=== PATIENT | male | born 1990 | race Two or more races ===

== ENCOUNTER 2017-09-25 12:23 | Inpatient (IN) | payer OTHER ==
[~2017-09-25] VITALS: Ht 185.4 cm; Wt 93.9 kg
[2017-09-25 12:58] VITALS: BP 120/77
[2017-09-25 14:10] LABS: HEMATOCRIT 47.4 % (42.0-52.0); HEMOGLOBIN 16.2 G/DL (14.2-18.0); MEAN CORPUSCULAR VOLUME 91 FL (80-99); MONOCYTES % (AUTO) 7.5 % (1.0-10.0); NEUTROPHILS % (AUTO) 59.5 % (45.0-75.0); PLATELET COUNT 166 K/UL (150-450); RED BLOOD COUNT 5.19 M/UL (4.70-6.10); RED CELL DISTRIBUTION WIDTH 10.5 % (11.6-14.8)
[2017-09-25 14:23] LABS: ANION GAP 8 mmol/L (5-15); BLOOD UREA NITROGEN 15 mg/dL (7-18); CALCIUM 8.9 MG/DL (8.5-10.1); CARBON DIOXIDE 27 MMOL/L (21-32); CHLORIDE 104 MMOL/L (98-107); CREATININE 0.7 MG/DL (0.55-1.30); POTASSIUM 3.8 MMOL/L (3.5-5.1); SODIUM 139 MMOL/L (136-145)
[2017-09-25 14:45] LABS: ALANINE AMINOTRANSFERASE 20 U/L (12-78); ALBUMIN/GLOBULIN RATIO 1.2 (1.0-2.7); ALKALINE PHOSPHATASE 110 U/L (46-116); ASPARTATE AMINO TRANSFERASE 10 U/L (15-37); BILIRUBIN,TOTAL 0.3 MG/DL (0.2-1.0); CKMB 0.6 NG/ML (0.0-3.6); CREATINE KINASE 80 U/L (26-308)
--- NOTE | 2017-09-25 15:11 | Emergency Room Report ---
History of Present Illness General Chief Complaint: Abnormal Labs Source: Patient Present Illness HPI This patient was sent in from an outpatient clinic for concern of active tuberculosis. The patient had been seen in clinic and underwent testing and had a positive interferon gold test. The patient himself has no complaints. The patient denies cough or congestion. The patient denies night sweats or bloody sputum production. However, the outpatient clinic reports that there is some findings on a chest x-ray. The patient did come to the [facility] from [facility] 3 months ago and this in an endemic TB area. Allergies: Coded Allergies: No Known Allergies (Unverified , 09/25/17) Patient History Past Medical History: none, other - Postive TB test. Social History: Denies: smoking, alcohol use, drug use Reviewed Nursing Documentation: PMH: Agreed; PSxH: Agreed Nursing Documentation-PMH Past Medical History: No History, Except For Review of Systems All Other Systems: negative except mentioned in HPI Physical Exam Vital Signs Date Time Temp Pulse Resp B/P (MAP) Pulse Ox O2 Delivery O2 Flow Rate FiO2 09/25/17 12:28 98.0 64 18 120/77 98 Room Air 98.1 Sp02 EP Interpretation: reviewed, normal General Appearance: no apparent distress, alert, GCS 15, non-toxic Head: normocephalic, atraumatic Eyes: bilateral eye normal inspection, bilateral eye PERRL ENT: hearing grossly normal, normal pharynx, no angioedema, normal voice Neck: full range of motion, supple/symm/no masses Respiratory: chest non-tender, lungs clear, normal breath sounds, speaking full sentences Cardiovascular #1: regular rate, rhythm, no edema Gastrointestinal: normal bowel sounds, non tender, soft, non-distended, no guarding, no rebound Rectal: deferred Musculoskeletal: back normal, gait/station normal, normal range of motion, non- tender Neurologic: alert, oriented x3, responsive, motor strength/tone normal, sensory intact, speech normal Psychiatric: judgement/insight normal, memory normal, mood/affect normal, no suicidal/homicidal ideation Skin: normal color, no rash, warm/dry, well hydrated Medical Decision Making Diagnostic Impression: Primary Impression: Tuberculosis ER Course This patient has a positive quantitative from cold tuberculosis test. There is concern for active tuberculosis. He is admitted for isolation and determination of active tuberculosis. He was stable here in the emergency department and admitted for further evaluation and treatment. Laboratory Tests Test 09/25/17 13:40 White Blood Count 7.0 K/UL (4.8-10.8) Red Blood Count 5.19 M/UL (4.70-6.10) Hemoglobin 16.2 G/DL (14.2-18.0) Hematocrit 47.4 % (42.0-52.0) Mean Corpuscular Volume 91 FL (80-99) Mean Corpuscular Hemoglobin 31.2 PG (27.0-31.0) H Mean Corpuscular Hemoglobin Concent 34.2 G/DL (32.0-36.0) Red Cell Distribution Width 10.5 % (11.6-14.8) L Platelet Count 166 K/UL (150-450) Mean Platelet Volume 8.5 FL (6.5-10.1) Neutrophils (%) (Auto) 59.5 % (45.0-75.0) Lymphocytes (%) (Auto) 31.0 % (20.0-45.0) Monocytes (%) (Auto) 7.5 % (1.0-10.0) Eosinophils (%) (Auto) 1.0 % (0.0-3.0) Basophils (%) (Auto) 1.0 % (0.0-2.0) Sodium Level 139 MMOL/L (136-145) Potassium Level 3.8 MMOL/L (3.5-5.1) Chloride Level 104 MMOL/L (98-107) Carbon Dioxide Level 27 MMOL/L (21-32) Anion Gap 8 mmol/L (5-15) Blood Urea Nitrogen 15 mg/dL (7-18) Creatinine 0.7 MG/DL (0.55-1.30) Estimate Glomerular Filtration Rate > 60 mL/min (>60) Glucose Level 109 MG/DL (74-106) H Calcium Level 8.9 MG/DL (8.5-10.1) Total Bilirubin 0.3 MG/DL (0.2-1.0) Aspartate Amino Transferase (AST) 10 U/L (15-37) L Alanine Aminotransferase (ALT) 20 U/L (12-78) Alkaline Phosphatase 110 U/L (46-116) Total Creatine Kinase 80 U/L (26-308) Creatine Kinase MB 0.6 NG/ML (0.0-3.6) Creatine Kinase MB Relative Index 0.7 Total Protein 7.4 G/DL (6.4-8.2) Albumin 4.0 G/DL (3.4-5.0) Globulin 3.4 g/dL Albumin/Globulin Ratio 1.2 (1.0-2.7) EKG Diagnostic Results Rate: normal Rhythm: NSR ST Segments: other - Qwaves Rhythm Strip Diag. Results EP Interpretation: yes Rate: 60's Rhythm: NSR, no PVC's, no ectopy Chest X-Ray Diagnostic Results Chest X-Ray Diagnostic Results : Chest X-Ray Ordered: Yes # of Views/Limited/Complete: 1 View Indication: Other EP Interpretation: Yes Interpretation: no consolidation, no effusion, no pneumothorax, no acute cardiopulmonary disease Impression: No acute disease Electronically Signed by: Franky Last Vital Signs Date Time Temp Pulse Resp B/P (MAP) Pulse Ox O2 Delivery O2 Flow Rate FiO2 09/25/17 12:58 98.1 18 120/77 98 Room Air 98.1 09/25/17 12:28 64 Disposition: ADMITTED INPATIENT Condition: Stable Scripts No Active Prescriptions or Reported Meds Referrals: [facility]ERR[facility] (PCP) Eugenie Narayan DO Sep 25, 2017 15:11
[2017-09-25 16:30] VITALS: BP 136/91
--- NOTE | 2017-09-25 17:07 | Diagnostic Imaging Report ---
Indication: Shortness of breath Technique: One view of the chest Comparison: none Findings: Lungs and pleural spaces are clear. The heart size is normal Impression: Negative
[2017-09-25] MEDS ORDERED: Acetaminophen 500mg (ES) tab ORAL PRN (17:30)
[2017-09-25] MEDS ORDERED: guaiFENesin 100mg/5ml Liq ud ORAL PRN (18:45)
--- NOTE | 2017-09-25 18:45 | Consultation ---
Consult Note Assessment/Plan DICT # [id number] Anjel Coronel MD Sep 25, 2017 18:45
[2017-09-25 19:19] VITALS: BP 121/69
[2017-09-25] MEDS ORDERED: Sodium Chloride 3% 4ml Nebul Soln INH ONE (19:30)
--- NOTE | 2017-09-25 19:45 | Consultation ---
DATE OF CONSULTATION: 09/25/2017 PULMONARY CONSULTATION REFERRING PHYSICIAN: Dr. Cyndee Contreras. REASON FOR CONSULTATION: Possible TB. HISTORY OF PRESENT ILLNESS: The patient is a 27-year-old male here from [facility] without any significant past medical history, who recently established care at the [facility]. He has been having cough for the past couple weeks with some left-sided vague chest discomfort. He had a positive QuantiFERON Gold, so was advised to come to the ER for further evaluation. He also had a chest x-ray, accessible on clinic, which showed some left basilar atelectasis. Chest x-ray here is normal. He has been afebrile. Vital signs are stable. He denies any fevers, chills, night sweats, headache, dizziness, nausea or vomiting. He does have some abdominal dysfunction and dyspepsia for which he has recently been started on Zantac and referred for GI evaluation. Since arriving at [place], he has been afebrile. Vital signs stable. Saturating well on room air. Laboratories were unremarkable. He has been admitted to TB isolation for further evaluation and management. Chest x-ray here done and reviewed by myself was unremarkable. PAST MEDICAL HISTORY: None. PAST SURGICAL HISTORY: None. ALLERGIES: No known drug allergies. MEDICATIONS: [id number], medications none. Current medications none. 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 No tobacco, alcohol, or drug use. Not currently sexually active. FAMILY HISTORY: Noncontributory. REVIEW OF SYSTEMS: Negative other than history of present illness. PHYSICAL EXAMINATION: VITAL SIGNS: Temperature 97.9, pulse 72, blood pressure 138/87, respiratory rate 18, and saturating 98% on room air. GENERAL: He is a well-developed, well-nourished male in no acute distress. Awake, alert, and oriented x3. HEENT: Normocephalic and atraumatic. Oropharynx is clear with moist mucous membranes. NECK: Supple without lymphadenopathy or jugular venous distention. CHEST: Clear to auscultation bilaterally without wheezing, rales, or rhonchi. HEART: Regular rate and rhythm. ABDOMEN: Soft and nontender. EXTREMITIES: No cyanosis, clubbing, or edema. ANCILLARY DATA: Sodium 139, potassium 3.8, chloride 104, bicarb 27, BUN 15, creatinine 0.7, glucose 109, and calcium 8.9. Total bilirubin 0.3. AST 10, ALT 20, alkaline phosphatase 110. CK 80, CK-MB 0.7. Albumin 4. Globulin 3.4, ratio 1.2. White count 7, hemoglobin 16.2, and platelet count 166. Chest x-ray, within normal limits. ASSESSMENT: The patient is a 27-year-old male who recently relocated here from [facility] referred for evaluation of a positive QuantiFERON Gold. There is nothing to suggest active pulmonary tuberculosis, but the patient has been admitted to airborne isolation to rule out MTB, which is appropriate given he is coming from an endemic area with positive QuantiFERON Gold and recent respiratory symptoms. He also has some epigastric discomfort and likely gastroesophageal reflux disease for which he has recently been started on H2 courtney and referred to gastrointestinal as an outpatient. PROBLEM LIST: 1. 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 2. Atypical chest pain and shortness of breath. 3. Epigastric discomfort. 4. GERD or gastritis. TREATMENT PLAN: 1. Rule out mycobacterium TB with AFB x3 and MTB PCR. 2. Continue respiratory isolation until ruled out. 3. We will check a CT chest, abdomen and pelvis with and without contrast to both evaluate for venous thromboembolism, given his atypical chest pain as well as for any intra-abdominal pathology given his persistent abdominal symptoms. 4. Supportive care. 5. As needed antitussive therapy. 6. We will start PPI. 7. Check occult blood. 8. GI evaluation is pending. 9. DVT prophylaxis, SCDs. Dr. Contreras, thank you for allowing me to assist in the care of your patient. If I may be of any assistance in the future, please do not hesitate to ask. Anjel Coronel M.D. DR: EDWIN JOB#: [id number] CC:
[2017-09-25 23:42] VITALS: BP 115/78
[2017-09-26 03:53] VITALS: BP 122/77
[2017-09-26] MEDS ORDERED: Sodium Chloride 3% 4ml Nebul Soln INH ONE (06:15)
[2017-09-26] MEDS ORDERED: NaCl 3% 500ml 250 ML IVPB ONE ×2 (06:15)
[2017-09-26 07:22] LABS: ALANINE AMINOTRANSFERASE 21 U/L (12-78); ALBUMIN/GLOBULIN RATIO 1.1 (1.0-2.7); ALKALINE PHOSPHATASE 109 U/L (46-116); ANION GAP 11 mmol/L (5-15); ASPARTATE AMINO TRANSFERASE 13 U/L (15-37); BILIRUBIN,TOTAL 0.5 MG/DL (0.2-1.0); BLOOD UREA NITROGEN 13 mg/dL (7-18); CARBON DIOXIDE 23 MMOL/L (21-32); CHLORIDE 104 MMOL/L (98-107); CREATININE 0.8 MG/DL (0.55-1.30); POTASSIUM 3.7 MMOL/L (3.5-5.1); SODIUM 138 MMOL/L (136-145)
[2017-09-26 07:29] LABS: BASOPHILS % (AUTO) 0.9 % (0.0-2.0); EOSINOPHILS % (AUTO) 1.5 % (0.0-3.0); HEMATOCRIT 48.2 % (42.0-52.0); HEMOGLOBIN 17.3 G/DL (14.2-18.0); LYMPHOCYTES % (AUTO) 34.5 % (20.0-45.0); MEAN CORPUSCULAR VOLUME 91 FL (80-99); MONOCYTES % (AUTO) 8.2 % (1.0-10.0); NEUTROPHILS % (AUTO) 54.9 % (45.0-75.0); PLATELET COUNT 183 K/UL (150-450); RED CELL DISTRIBUTION WIDTH 10.4 % (11.6-14.8); WHITE BLOOD COUNT 8.6 K/UL (4.8-10.8)
[2017-09-26] MEDS ORDERED: Isovue-370 150ml vial INJ PRN (08:30)
[2017-09-26] MEDS ORDERED: Isovue-300 100ml vial INJ PRN (08:30)
[2017-09-26 09:00] VITALS: BP 112/58
--- NOTE | 2017-09-26 13:54 | Diagnostic Imaging Report ---
Clinical Indication: Chest and abdominal pain, atypical chest pain Technique: Patient ingested oral contrast IV administration nonionic contrast. Venous phase spiral acquisition obtained through the abdomen and pelvis. Multiplanar reconstructions were generated. Total dose length product 1748.8 mGycm. CTDIvol(s) 26.39,13.88 mGy. Dose reduction achieved using automated exposure control Comparison: none Findings: The appendix is normal. No evidence of diverticulosis or diverticulitis. No small bowel distention or small bowel wall thickening. Contrast has traversed most of the length of the small bowel, does not quite reach the terminal ileum. No free or loculated intraperitoneal air or fluid is evident. Distal esophagus, stomach, duodenum are unremarkable. There is a tiny fat-containing umbilical hernia The liver, gallbladder, bile ducts, pancreas, spleen, adrenals are all unremarkable. There is a 4 mm calculus in the right renal lower pole collecting system. The kidneys are otherwise unremarkable. No ureteral calculi, hydronephrosis, hydroureter. No retroperitoneal or mesenteric mass or adenopathy. No pelvic mass or adenopathy. The bones are unremarkable Impression: No acute abnormality Positive for 4 mm nonobstructive right lower pole intrarenal calculus Incidental finding tiny fat-containing umbilical hernia The CT scanner at [facility] is accredited by the [employer] and the scans are performed using protocols designed to limit radiation exposure to as low as reasonably achievable to attain images of sufficient resolution adequate for diagnostic evaluation.
--- NOTE | 2017-09-26 13:56 | Diagnostic Imaging Report ---
ndication: Atypical chest pain Technique: IV administration nonionic contrast. Spiral acquisitions obtained from the lung bases to the lung apices. Multiplanar and 3-D reconstructions were generated. Total dose length product 1748.8 mGycm. CTDIvol(s) 26.39,13.88 mGy. Dose reduction achieved using automated exposure control Comparison: none Findings: There is some image degradation due to respiratory motion artifact. Pulmonary arteries are well opacified. No intraluminal filling defects or other findings to suggest acute pulmonary embolus demonstrated. Normal caliber pulmonary arteries. Normal heart size. No evidence of right ventricular dilatation. There is some posterior dependent atelectatic changes. There is apparent groundglass opacities throughout the lungs, although suspect that this is due to motion artifact rather than real. No definite infiltrates, effusions, congestion, masses, or nodules. No mediastinal or hilar mass or adenopathy. Normal heart size. No pericardial effusion. No axillary or chest wall mass or adenopathy. Included portions of the thyroid are unremarkable The bones demonstrate mild upper thoracic scoliotic deformity. Impression: Somewhat limited exam, due to motion artifact No definite evidence of acute pulmonary embolus or other acute thoracic vascular pathology Minimal posterior dependent pulmonary atelectatic changes. No definite acute parenchymal process, although motion artifact precludes complete exclusion of such Mild upper thoracic scoliosis The CT scanner at [facility] is accredited by the [employer] and the scans are performed using protocols designed to limit radiation exposure to as low as reasonably achievable to attain images of sufficient resolution adequate for diagnostic evaluation.
--- NOTE | 2017-09-26 14:04 | Cardiology Report ---
APPROVED REPORT EKG Measurement Heart [id number] Normal sinus rhythm Possible Inferior infarct, age undetermined Abnormal ECG
--- NOTE | 2017-09-26 17:30 | Consultation ---
DATE OF CONSULTATION: 09/26/2017 INFECTIOUS DISEASE CONSULTATION CONSULTING PHYSICIAN: Getachew Montez M.D. PRIMARY ATTENDING PHYSICIAN: Cyndee Contreras M.D. REASON FOR CONSULT: Tuberculosis. HISTORY OF PRESENT ILLNESS: The patient is a 27-year-old male admitted yesterday after referral from an outside clinic. He had recently positive QuantiFERON Gold TB test. Denies any fever, chills, night sweats, headache, nausea, or vomiting. No weight loss. He is from [facility] and recently came to [facility] three months ago. He has occasional cough and cold symptoms every 2 to 3 months. PAST MEDICAL HISTORY: Insignificant. MEDICATIONS: Protonix, guaifenesin, and Tylenol. ALLERGIES: No known drug allergy. SOCIAL HISTORY: . Denies alcohol, drug abuse, or smoking. He has one child. He states that he had a HIV test that was negative around three months ago. REVIEW OF SYSTEMS: As per history of present illness. PHYSICAL EXAMINATION: VITAL SIGNS: Temperature 97.2, pulse 60, and blood pressure 122/77. GENERAL APPEARANCE: No acute distress. Seems well developed. HEAD AND NECK: [place] conjunctiva. HEART: S1 and S2 regular. LUNGS: Clear. ABDOMEN: Soft. Some mild tenderness in the left lower quadrant. EXTREMITIES: No edema. NEUROLOGIC: Awake, alert, and oriented. No focal symptoms. LABORATORY AND DIAGNOSTIC DATA: WBC 8.6, hemoglobin 17.3, hematocrit 48.2, and platelets is 183,000. Sodium 138, potassium 3.7, chloride 104, bicarb 23, BUN 13, and creatinine 0.8. AST 13, ALT 21, and alkaline phosphatase 109. His stool occult blood was negative. CT scan of the abdomen and chest are pending. IMPRESSION: Latent tuberculosis. We will try to rule out active tuberculosis. We will follow up the CT scan of the chest and abdomen and pelvis. If it is negative, we will consult the patient regarding taken INH. If positive, we will treat for tuberculosis. At the end of my exam, I thank for Dr. Contreras for involving me in the care of this patient. Getachew Montez M.D. DR: SAQIB JOB#: [id number] CC:
--- NOTE | 2017-09-26 18:05 | Pulmonology Progress Note ---
Assessment/Plan Assessment/Plan ASSESSMENT: The patient is a 27-year-old male who recently relocated here from [place] referred for evaluation of a positive QuantiFERON Gold. There is nothing to suggest active pulmonary tuberculosis, but the patient has been admitted to airborne isolation to rule out MTB, which is appropriate given he is coming from an endemic area with positive QuantiFERON Gold and recent respiratory symptoms. He also has some epigastric discomfort and likely gastroesophageal reflux disease for which he has recently been started on H2 courtney and referred to gastrointestinal as an outpatient. PROBLEM LIST: 1. 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 No radiographic e/o MTB 2. Atypical chest pain and shortness of breath, CT-A neg for PE 3. Epigastric discomfort. 4. GERD or gastritis. TREATMENT PLAN: 1. CT CAP reviewed, no e/o TB 2. D/C respiratory isolation per ID 3. Consideration for treatment of LTBI 4. Supportive care. 5. As needed antitussive therapy. 6. Continue PPI. 7. GI evaluation 8. DVT prophylaxis, SCDs. Subjective Allergies: Coded Allergies: No Known Allergies (Unverified , 09/25/17) Subjective Doing well AFVSS, stable on RA No cough, no congestion, no SOB, no CP, abd pain better Objective Last 24 Hour Vital Signs Date Time Temp Pulse Resp B/P (MAP) Pulse Ox O2 Delivery O2 Flow Rate FiO2 09/26/17 08:05 60 16 Room Air 21 09/26/17 07:50 58 16 100 Room Air 21 09/26/17 03:53 97.2 60 20 122/77 99 Room Air 97.2 09/25/17 23:42 97.0 66 20 115/78 98 Room Air 97.0 09/25/17 19:19 97.7 64 20 121/69 99 Room Air 97.7 Intake and Output 09/25/17 09/26/17 19:00 07:00 Intake Total 240 ml Balance 240 ml Intake Oral 240 ml # Voids 2 # Bowel Movements 1 1 General Appearance: WD/WN, no acute distress HEENT: normocephalic, atraumatic, anicteric, mucous membranes moist Respiratory/Chest: chest wall non-tender, lungs clear, normal breath sounds Cardiovascular: normal peripheral pulses, normal rate, regular rhythm Abdomen: normal bowel sounds, soft, non tender, no organomegaly, non distended , no mass Extremities: no cyanosis, no clubbing, no edema Laboratory Tests 09/25/17 22:45: Stool Occult Blood Negative 09/26/17 05:10: White Blood Count 8.6, Red Blood Count 5.30, Hemoglobin 17.3, Hematocrit 48.2, Mean Corpuscular Volume 91, Mean Corpuscular Hemoglobin 32.7H, Mean Corpuscular Hemoglobin Concent 35.9, Red Cell Distribution Width 10.4L, Platelet Count 183, Mean Platelet Volume 9.1, Neutrophils (%) (Auto) 54.9, Lymphocytes (%) (Auto) 34.5, Monocytes (%) (Auto) 8.2, Eosinophils (%) (Auto) 1.5, Basophils (%) (Auto ) 0.9, Sodium Level 138, Potassium Level 3.7, Chloride Level 104, Carbon Dioxide Level 23, Anion Gap 11, Blood Urea Nitrogen 13, Creatinine 0.8, Estimat Glomerular Filtration Rate > 60, Glucose Level 95, Calcium Level 9.0, Total Bilirubin 0.5, Aspartate Amino Transf (AST/SGOT) 13L, Alanine Aminotransferase ( ALT/SGPT) 21, Alkaline Phosphatase 109, Total Protein 7.6, Albumin 4.0, Globulin 3.6, Albumin/Globulin Ratio 1.1 Current Medications Medications (Trade) Dose Ordered Sig/Warren Route PRN Reason Start Time Stop Time Status Last Admin Dose Admin Acetaminophen (Tylenol) 500 mg Q4H PRN ORAL Mild Pain/Temp > 100.5 09/25/17 17:30 10/25/17 17:29 Guaifenesin (Robitussin) 100 mg Q4H PRN ORAL For Cough 09/25/17 18:45 10/25/17 18:44 Iopamidol (Isovue-300 100ml) 100 ml NOW PRN INJ Radiology Procedure 09/26/17 08:30 09/28/17 08:29 Iopamidol (Isovue-370 150ml) 150 ml NOW PRN INJ Radiology Procedure 09/26/17 08:30 09/28/17 08:29 Pantoprazole (Protonix) 40 mg DAILY ORAL 09/26/17 09:00 10/26/17 08:59 09/26/17 12:49 Anjel Coronel MD Sep 26, 2017 18:05
[2017-09-26 21:00] VITALS: BP 112/69
--- NOTE | 2017-09-27 04:45 | History and Physical Report ---
DATE OF ADMISSION: 09/25/2017 HISTORY OF PRESENT ILLNESS: The patient is originally from [facility], who has been admitted for active tuberculosis. The patient went to clinic one week ago and was found to have positive TB test and is admitted for isolation. The patient is also complaining of mild cough, and shortness of breath for one week and the patient has a history of . The last time he was in [place] was three years ago, he moved to [facility]. 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 The patient denies hemoptysis. Denies weight loss. Denies night sweats. The patient had a positive QuantiFERON Gold test at outpatient clinic. PAST MEDICAL HISTORY: None other than GERD. PAST SURGICAL HISTORY: None. MEDICATIONS: None. FAMILY HISTORY: Noncontributory. SOCIAL HISTORY: Denies active smoking, alcohol, or illicit drug use. The patient is from [facility]. REVIEW OF SYSTEMS: HEENT: Denies headaches. RESPIRATORY: He reports shortness of breath for one day and mild cough for one week. CARDIOVASCULAR: Denies chest pain. GASTROINTESTINAL: Denies nausea or vomiting. He does have abdominal pain for one day, mostly on the left side. EXTREMITIES: Denies pain in the lower extremities. CENTRAL NERVOUS SYSTEM: No change in vision or speech pattern. PHYSICAL EXAMINATION: VITAL SIGNS: Temperature 97.2, pulse 78, and blood pressure 122/70. HEENT: PERRLA. NECK: Supple. No lymphadenopathy. CHEST: Clear to auscultation. GASTROINTESTINAL: Soft and nontender. No organomegaly. EXTREMITIES: No edema. Moves all four extremities. Reflexes are equal on both sides. No edema. NEUROLOGIC: Cranial nerves II through XII are intact. LABORATORY DATA: WBC of 7, hemoglobin 16.2, and platelets of 166,000. Sodium 139, potassium 3.8, BUN of 15, creatinine 0.7, and glucose of 109. ASSESSMENT AND PLAN: Active tuberculosis. He is on isolation. Dr. Coronel as well as Dr. Montez and Dr. Masters were consulted for fluid management as well as for management of the tuberculosis. The patient is on isolation. AFB is ordered and further diagnostic tests will be also reviewed by Dr. Coronel as well as Dr. Getachew Montez. Ali Wagner Contreras DR: ALINA JOB#: [id number] CC:
--- NOTE | 2017-09-27 06:58 | General Progress Note ---
Assessment/Plan Problem List: (1) Tuberculosis ICD Codes: A15.9 - Respiratory tuberculosis unspecified SNOMED: [id number], [id number] Status: progressing Assessment/Plan tb treatment per dr evangelista and id on isolation Subjective Gastrointestinal/Abdominal: Reports: abdominal pain Allergies: Coded Allergies: No Known Allergies (Unverified , 09/25/17) Objective Last 24 Hour Vital Signs Date Time Temp Pulse Resp B/P (MAP) Pulse Ox O2 Delivery O2 Flow Rate FiO2 09/26/17 21:00 97.4 66 20 112/69 98 Room Air 97.4 09/26/17 09:00 97.3 72 20 112/58 98 Room Air 97.3 09/26/17 08:05 60 16 Room Air 21 09/26/17 07:50 58 16 100 Room Air 21 Intake and Output 09/26/17 09/27/17 19:00 07:00 Intake Total 140 ml Balance 140 ml Intake Oral 140 ml # Voids 4 3 Laboratory Tests 09/27/17 05:10: White Blood Count [Pending], Red Blood Count [Pending], Hemoglobin [Pending], Hematocrit [Pending], Mean Corpuscular Volume [Pending], Mean Corpuscular Hemoglobin [Pending], Mean Corpuscular Hemoglobin Concent [Pending], Red Cell Distribution Width [Pending], Platelet Count [Pending], Mean Platelet Volume [ Pending], Neutrophils (%) (Auto) [Pending], Lymphocytes (%) (Auto) [Pending], Monocytes (%) (Auto) [Pending], Eosinophils (%) (Auto) [Pending], Basophils (%) (Auto) [Pending], Sodium Level [Pending], Potassium Level [Pending], Chloride Level [Pending], Carbon Dioxide Level [Pending], Blood Urea Nitrogen [Pending], Creatinine [Pending], Estimat Glomerular Filtration Rate [Pending], Glucose Level [Pending], Calcium Level [Pending], Total Bilirubin [Pending], Aspartate Amino Transf (AST/SGOT) [Pending], Alanine Aminotransferase (ALT/SGPT) [Pending] , Alkaline Phosphatase [Pending], Total Protein [Pending], Albumin [Pending], Globulin [Pending] Height (Feet): 6 Height (Inches): 1.00 Weight (Pounds): 180 Cyndee Contreras MD Sep 27, 2017 06:58
[2017-09-27 07:16] LABS: ALANINE AMINOTRANSFERASE 19 U/L (12-78); ALBUMIN 3.9 G/DL (3.4-5.0); ALBUMIN/GLOBULIN RATIO 1.1 (1.0-2.7); ALKALINE PHOSPHATASE 121 U/L (46-116); ANION GAP 9 mmol/L (5-15); ASPARTATE AMINO TRANSFERASE 12 U/L (15-37); BILIRUBIN,TOTAL 0.4 MG/DL (0.2-1.0); BLOOD UREA NITROGEN 10 mg/dL (7-18); CALCIUM 8.6 MG/DL (8.5-10.1); CARBON DIOXIDE 26 MMOL/L (21-32); CHLORIDE 104 MMOL/L (98-107); CREATININE 0.9 MG/DL (0.55-1.30); POTASSIUM 3.6 MMOL/L (3.5-5.1); SODIUM 139 MMOL/L (136-145)
[2017-09-27 07:39] LABS: BASOPHILS % (AUTO) 0.9 % (0.0-2.0); EOSINOPHILS % (AUTO) 1.8 % (0.0-3.0); HEMATOCRIT 48.9 % (42.0-52.0); HEMOGLOBIN 17.1 G/DL (14.2-18.0); LYMPHOCYTES % (AUTO) 33.7 % (20.0-45.0); MEAN CORPUSCULAR VOLUME 91 FL (80-99); MONOCYTES % (AUTO) 6.9 % (1.0-10.0); NEUTROPHILS % (AUTO) 56.7 % (45.0-75.0); PLATELET COUNT 190 K/UL (150-450); RED BLOOD COUNT 5.34 M/UL (4.70-6.10); RED CELL DISTRIBUTION WIDTH 10.4 % (11.6-14.8); WHITE BLOOD COUNT 8.1 K/UL (4.8-10.8)
[2017-09-27 08:00] VITALS: BP 110/57
--- NOTE | 2017-09-27 11:44 | Pulmonology Progress Note ---
Assessment/Plan Assessment/Plan ASSESSMENT: The patient is a 27-year-old male who recently relocated here from [place] referred for evaluation of a positive QuantiFERON Gold. There is nothing to suggest active pulmonary tuberculosis, but the patient has been admitted to airborne isolation to rule out MTB, which is appropriate given he is coming from an endemic area with positive QuantiFERON Gold and recent respiratory symptoms. He also has some epigastric discomfort and likely gastroesophageal reflux disease for which he has recently been started on H2 courtney and referred to gastrointestinal as an outpatient. PROBLEM LIST: 1. 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 No radiographic e/o MTB 2. Atypical chest pain and shortness of breath, CT-A neg for PE 3. Epigastric discomfort. 4. GERD or gastritis. TREATMENT PLAN: 1. CT CAP reviewed, no e/o TB 2. F/U MTB PCR 3. Per ID can be off respiratory isolation 4. Consideration for treatment of LTBI 5. Supportive care. 6. As needed antitussive therapy. 7. Continue PPI. 8. Should have an outpatient GI eval 9. DVT prophylaxis, SCDs. Subjective Allergies: Coded Allergies: No Known Allergies (Unverified , 09/25/17) Subjective AFVSS, stable on RA No cough, no congestion, no SOB, no CP, no abd pain Objective Last 24 Hour Vital Signs Date Time Temp Pulse Resp B/P (MAP) Pulse Ox O2 Delivery O2 Flow Rate FiO2 09/27/17 08:00 97.8 65 20 110/57 99 Room Air 97.8 09/26/17 21:00 97.4 66 20 112/69 98 Room Air 97.4 Intake and Output 09/26/17 09/27/17 19:00 07:00 Intake Total 140 ml Balance 140 ml Intake Oral 140 ml # Voids 4 3 General Appearance: WD/WN, no acute distress HEENT: normocephalic, atraumatic, anicteric, mucous membranes moist Respiratory/Chest: chest wall non-tender, lungs clear, normal breath sounds, no respiratory distress, no accessory muscle use Cardiovascular: normal peripheral pulses, normal rate, regular rhythm Abdomen: normal bowel sounds, soft, non tender, no organomegaly, non distended Extremities: no cyanosis, no clubbing, no edema Laboratory Tests 09/27/17 05:10: White Blood Count 8.1, Red Blood Count 5.34, Hemoglobin 17.1, Hematocrit 48.9, Mean Corpuscular Volume 91, Mean Corpuscular Hemoglobin 32.0H, Mean Corpuscular Hemoglobin Concent 35.0, Red Cell Distribution Width 10.4L, Platelet Count 190, Mean Platelet Volume 8.2, Neutrophils (%) (Auto) 56.7, Lymphocytes (%) (Auto) 33.7, Monocytes (%) (Auto) 6.9, Eosinophils (%) (Auto) 1.8, Basophils (%) (Auto ) 0.9, Sodium Level 139, Potassium Level 3.6, Chloride Level 104, Carbon Dioxide Level 26, Anion Gap 9, Blood Urea Nitrogen 10, Creatinine 0.9, Estimat Glomerular Filtration Rate > 60, Glucose Level 108H, Calcium Level 8.6, Total Bilirubin 0.4, Aspartate Amino Transf (AST/SGOT) 12L, Alanine Aminotransferase ( ALT/SGPT) 19, Alkaline Phosphatase 121H, Total Protein 7.4, Albumin 3.9, Globulin 3.5, Albumin/Globulin Ratio 1.1 Current Medications Medications (Trade) Dose Ordered Sig/Warren Route PRN Reason Start Time Stop Time Status Last Admin Dose Admin Acetaminophen (Tylenol) 500 mg Q4H PRN ORAL Mild Pain/Temp > 100.5 09/25/17 17:30 10/25/17 17:29 Guaifenesin (Robitussin) 100 mg Q4H PRN ORAL For Cough 09/25/17 18:45 10/25/17 18:44 Iopamidol (Isovue-300 100ml) 100 ml NOW PRN INJ Radiology Procedure 09/26/17 08:30 09/28/17 08:29 Iopamidol (Isovue-370 150ml) 150 ml NOW PRN INJ Radiology Procedure 09/26/17 08:30 09/28/17 08:29 Pantoprazole (Protonix) 40 mg DAILY ORAL 09/26/17 09:00 10/26/17 08:59 09/27/17 08:44 Anjel Coronel MD Sep 27, 2017 11:44
--- NOTE | 2017-09-27 13:43 | Infectious Diseases Prog Note ---
Assessment/Plan Assessment/Plan A; Positive TB test Latent TB P: Discontinue respiratory isolation Case was d/w patient about INH prophylaxis or waiting for symptoms development & RX Subjective ROS Limited/Unobtainable: No Constitutional: Reports: no symptoms Cardiovascular: Reports: no symptoms Gastrointestinal/Abdominal: Reports: other - mild pain Genitourinary: Reports: no symptoms Allergies: Coded Allergies: No Known Allergies (Unverified , 09/25/17) Objective Vital Signs Last 24 Hour Vital Signs Date Time Temp Pulse Resp B/P (MAP) Pulse Ox O2 Delivery O2 Flow Rate FiO2 09/27/17 08:00 97.8 65 20 110/57 99 Room Air 97.8 09/26/17 21:00 97.4 66 20 112/69 98 Room Air 97.4 Height (Feet): 6 Height (Inches): 1.00 Weight (Pounds): 207 HEENT: mucous membranes moist Respiratory/Chest: lungs clear Cardiovascular: normal rate Abdomen: soft, non tender Extremities: no edema Neurologic/Psychiatric: alert, oriented x 3, responsive Microbiology Date/Time Source Procedure Growth Status 09/26/17 09:55 Sputum AFB Specimen Processing Tissue - Final Resulted 09/26/17 09:55 Sputum Acid Fast Bacilli Smear - Final Resulted 09/26/17 09:55 Sputum Acid Fast Bacilli Culture Pending Resulted 09/25/17 13:30 Sputum AFB Specimen Processing Tissue - Final Resulted 09/25/17 13:30 Sputum Acid Fast Bacilli Smear - Final Resulted 09/25/17 13:30 Sputum Acid Fast Bacilli Culture Pending Resulted Laboratory Tests Test 09/27/17 05:10 White Blood Count 8.1 K/UL (4.8-10.8) Red Blood Count 5.34 M/UL (4.70-6.10) Hemoglobin 17.1 G/DL (14.2-18.0) Hematocrit 48.9 % (42.0-52.0) Mean Corpuscular Volume 91 FL (80-99) Mean Corpuscular Hemoglobin 32.0 PG (27.0-31.0) H Mean Corpuscular Hemoglobin Concent 35.0 G/DL (32.0-36.0) Red Cell Distribution Width 10.4 % (11.6-14.8) L Platelet Count 190 K/UL (150-450) Mean Platelet Volume 8.2 FL (6.5-10.1) Neutrophils (%) (Auto) 56.7 % (45.0-75.0) Lymphocytes (%) (Auto) 33.7 % (20.0-45.0) Monocytes (%) (Auto) 6.9 % (1.0-10.0) Eosinophils (%) (Auto) 1.8 % (0.0-3.0) Basophils (%) (Auto) 0.9 % (0.0-2.0) Sodium Level 139 MMOL/L (136-145) Potassium Level 3.6 MMOL/L (3.5-5.1) Chloride Level 104 MMOL/L (98-107) Carbon Dioxide Level 26 MMOL/L (21-32) Anion Gap 9 mmol/L (5-15) Blood Urea Nitrogen 10 mg/dL (7-18) Creatinine 0.9 MG/DL (0.55-1.30) Estimat Glomerular Filtration Rate > 60 mL/min (>60) Glucose Level 108 MG/DL (74-106) H Calcium Level 8.6 MG/DL (8.5-10.1) Total Bilirubin 0.4 MG/DL (0.2-1.0) Aspartate Amino Transf (AST/SGOT) 12 U/L (15-37) L Alanine Aminotransferase (ALT/SGPT) 19 U/L (12-78) Alkaline Phosphatase 121 U/L (46-116) H Total Protein 7.4 G/DL (6.4-8.2) Albumin 3.9 G/DL (3.4-5.0) Globulin 3.5 g/dL Albumin/Globulin Ratio 1.1 (1.0-2.7) Current Medications Medications (Trade) Dose Ordered Sig/Warren Route PRN Reason Start Time Stop Time Status Last Admin Dose Admin Acetaminophen (Tylenol) 500 mg Q4H PRN ORAL Mild Pain/Temp > 100.5 09/25/17 17:30 10/25/17 17:29 Guaifenesin (Robitussin) 100 mg Q4H PRN ORAL For Cough 09/25/17 18:45 10/25/17 18:44 Iopamidol (Isovue-300 100ml) 100 ml NOW PRN INJ Radiology Procedure 09/26/17 08:30 09/28/17 08:29 Iopamidol (Isovue-370 150ml) 150 ml NOW PRN INJ Radiology Procedure 09/26/17 08:30 09/28/17 08:29 Pantoprazole (Protonix) 40 mg DAILY ORAL 09/26/17 09:00 10/26/17 08:59 09/27/17 08:44 Getachew Montez MD Sep 27, 2017 13:43
[2017-09-27 19:13] VITALS: BP 117/74
[2017-09-28 00:35] VITALS: BP 126/68
[2017-09-28 08:05] LABS: BASOPHILS % (AUTO) 0.9 % (0.0-2.0); HEMATOCRIT 49.5 % (42.0-52.0); LYMPHOCYTES % (AUTO) 31.7 % (20.0-45.0); MEAN CORPUSCULAR VOLUME 92 FL (80-99); MONOCYTES % (AUTO) 9.5 % (1.0-10.0); PLATELET COUNT 183 K/UL (150-450); RED BLOOD COUNT 5.41 M/UL (4.70-6.10); RED CELL DISTRIBUTION WIDTH 10.5 % (11.6-14.8); WHITE BLOOD COUNT 7.3 K/UL (4.8-10.8)
[2017-09-28 08:20] LABS: ALANINE AMINOTRANSFERASE 24 U/L (12-78); ALBUMIN/GLOBULIN RATIO 1.1 (1.0-2.7); ALKALINE PHOSPHATASE 112 U/L (46-116); ANION GAP 6 mmol/L (5-15); ASPARTATE AMINO TRANSFERASE 16 U/L (15-37); BILIRUBIN,TOTAL 0.6 MG/DL (0.2-1.0); BLOOD UREA NITROGEN 15 mg/dL (7-18); CALCIUM 9.1 MG/DL (8.5-10.1); CARBON DIOXIDE 29 MMOL/L (21-32); CHLORIDE 103 MMOL/L (98-107); CREATININE 0.9 MG/DL (0.55-1.30); POTASSIUM 4.3 MMOL/L (3.5-5.1); SODIUM 137 MMOL/L (136-145)
[2017-09-28 09:00] VITALS: BP 125/56
--- NOTE | 2017-09-28 12:38 | Infectious Diseases Prog Note ---
Assessment/Plan Assessment/Plan A; Positive TB test Latent TB AFB smear X 2: negative P: Waiting for public health department response for discharge Case was d/w patient about INH prophylaxis or waiting for symptoms development & RX Subjective ROS Limited/Unobtainable: No Constitutional: Reports: no symptoms Respiratory: Reports: no symptoms Cardiovascular: Reports: no symptoms Gastrointestinal/Abdominal: Reports: no symptoms Genitourinary: Reports: no symptoms Allergies: Coded Allergies: No Known Allergies (Unverified , 09/25/17) Objective Vital Signs Last 24 Hour Vital Signs Date Time Temp Pulse Resp B/P (MAP) Pulse Ox O2 Delivery O2 Flow Rate FiO2 09/28/17 09:00 97.3 76 20 125/56 97 97.3 09/28/17 00:35 97.7 60 20 126/68 96 Room Air 97.7 09/27/17 19:13 97.5 65 20 117/74 98 Room Air 97.5 Height (Feet): 6 Height (Inches): 1.00 Weight (Pounds): 207 General Appearance: no acute distress HEENT: mucous membranes moist Respiratory/Chest: lungs clear Cardiovascular: normal peripheral pulses, normal rate Abdomen: soft, non tender Extremities: no edema Neurologic/Psychiatric: alert, oriented x 3, responsive Microbiology Date/Time Source Procedure Growth Status 09/26/17 09:55 Sputum AFB Specimen Processing Tissue - Final Resulted 09/26/17 09:55 Sputum Acid Fast Bacilli Smear - Final Resulted 09/26/17 09:55 Sputum Acid Fast Bacilli Culture Pending Resulted 09/25/17 13:30 Sputum AFB Specimen Processing Tissue - Final Resulted 09/25/17 13:30 Sputum Acid Fast Bacilli Smear - Final Resulted 09/25/17 13:30 Sputum Acid Fast Bacilli Culture Pending Resulted Laboratory Tests Test 09/28/17 06:20 White Blood Count 7.3 K/UL (4.8-10.8) Red Blood Count 5.41 M/UL (4.70-6.10) Hemoglobin 17.0 G/DL (14.2-18.0) Hematocrit 49.5 % (42.0-52.0) Mean Corpuscular Volume 92 FL (80-99) Mean Corpuscular Hemoglobin 31.4 PG (27.0-31.0) H Mean Corpuscular Hemoglobin Concent 34.3 G/DL (32.0-36.0) Red Cell Distribution Width 10.5 % (11.6-14.8) L Platelet Count 183 K/UL (150-450) Mean Platelet Volume 8.8 FL (6.5-10.1) Neutrophils (%) (Auto) 56.0 % (45.0-75.0) Lymphocytes (%) (Auto) 31.7 % (20.0-45.0) Monocytes (%) (Auto) 9.5 % (1.0-10.0) Eosinophils (%) (Auto) 2.0 % (0.0-3.0) Basophils (%) (Auto) 0.9 % (0.0-2.0) Sodium Level 137 MMOL/L (136-145) Potassium Level 4.3 MMOL/L (3.5-5.1) Chloride Level 103 MMOL/L (98-107) Carbon Dioxide Level 29 MMOL/L (21-32) Anion Gap 6 mmol/L (5-15) Blood Urea Nitrogen 15 mg/dL (7-18) Creatinine 0.9 MG/DL (0.55-1.30) Estimat Glomerular Filtration Rate > 60 mL/min (>60) Glucose Level 102 MG/DL (74-106) Calcium Level 9.1 MG/DL (8.5-10.1) Total Bilirubin 0.6 MG/DL (0.2-1.0) Aspartate Amino Transf (AST/SGOT) 16 U/L (15-37) Alanine Aminotransferase (ALT/SGPT) 24 U/L (12-78) Alkaline Phosphatase 112 U/L (46-116) Total Protein 7.6 G/DL (6.4-8.2) Albumin 4.0 G/DL (3.4-5.0) Globulin 3.6 g/dL Albumin/Globulin Ratio 1.1 (1.0-2.7) Current Medications Medications (Trade) Dose Ordered Sig/Warren Route PRN Reason Start Time Stop Time Status Last Admin Dose Admin Acetaminophen (Tylenol) 500 mg Q4H PRN ORAL Mild Pain/Temp > 100.5 09/25/17 17:30 10/25/17 17:29 Guaifenesin (Robitussin) 100 mg Q4H PRN ORAL For Cough 09/25/17 18:45 10/25/17 18:44 Pantoprazole (Protonix) 40 mg DAILY ORAL 09/26/17 09:00 10/26/17 08:59 09/28/17 10:02 Getachew Montez MD Sep 28, 2017 12:38
--- NOTE | 2017-09-28 13:55 | General Progress Note ---
Assessment/Plan Problem List: (1) Tuberculosis ICD Codes: A15.9 - Respiratory tuberculosis unspecified SNOMED: [id number], [id number] Status: stable, progressing Assessment/Plan o2 pulm tx prn abx cbc bmp am Subjective Constitutional: Reports: weakness Allergies: Coded Allergies: No Known Allergies (Unverified , 09/25/17) All Systems: reviewed and negative except above Subjective calm in bed Objective Last 24 Hour Vital Signs Date Time Temp Pulse Resp B/P (MAP) Pulse Ox O2 Delivery O2 Flow Rate FiO2 09/28/17 09:00 97.3 76 20 125/56 97 97.3 09/28/17 00:35 97.7 60 20 126/68 96 Room Air 97.7 09/27/17 19:13 97.5 65 20 117/74 98 Room Air 97.5 Intake and Output 09/27/17 09/28/17 19:00 07:00 Intake Total 960 ml 400 ml Balance 960 ml 400 ml Intake Oral 960 ml 400 ml # Voids 2 Laboratory Tests 09/28/17 06:20: White Blood Count 7.3, Red Blood Count 5.41, Hemoglobin 17.0, Hematocrit 49.5, Mean Corpuscular Volume 92, Mean Corpuscular Hemoglobin 31.4H, Mean Corpuscular Hemoglobin Concent 34.3, Red Cell Distribution Width 10.5L, Platelet Count 183, Mean Platelet Volume 8.8, Neutrophils (%) (Auto) 56.0, Lymphocytes (%) (Auto) 31.7, Monocytes (%) (Auto) 9.5, Eosinophils (%) (Auto) 2.0, Basophils (%) (Auto ) 0.9, Sodium Level 137, Potassium Level 4.3, Chloride Level 103, Carbon Dioxide Level 29, Anion Gap 6, Blood Urea Nitrogen 15, Creatinine 0.9, Estimat Glomerular Filtration Rate > 60, Glucose Level 102, Calcium Level 9.1, Total Bilirubin 0.6, Aspartate Amino Transf (AST/SGOT) 16, Alanine Aminotransferase ( ALT/SGPT) 24, Alkaline Phosphatase 112, Total Protein 7.6, Albumin 4.0, Globulin 3.6, Albumin/Globulin Ratio 1.1 Height (Feet): 6 Height (Inches): 1.00 Weight (Pounds): 207 General Appearance: alert EENT: normal ENT inspection Neck: normal alignment Cardiovascular: normal peripheral pulses, normal rate, regular rhythm Respiratory/Chest: chest wall non-tender, decreased breath sounds Abdomen: normal bowel sounds, non tender, soft Extremities: normal inspection Edema: no edema noted Arm (L), no edema noted Arm (R), no edema noted Leg (L), no edema noted Leg (R), no edema noted Pedal (L), no edema noted Pedal (R), no edema noted Generalized Neurologic: responsive, motor weakness Skin: normal pigmentation, warm/dry Alfredito Pérez DO Sep 28, 2017 13:55
--- NOTE | 2017-09-28 16:10 | Pulmonology Progress Note ---
Assessment/Plan Assessment/Plan ASSESSMENT: The patient is a 27-year-old male who recently relocated here from [place] referred for evaluation of a positive QuantiFERON Gold. There is nothing to suggest active pulmonary tuberculosis, but the patient has been admitted to airborne isolation to rule out MTB, which is appropriate given he is coming from an endemic area with positive QuantiFERON Gold and recent respiratory symptoms. He also has some epigastric discomfort and likely gastroesophageal reflux disease for which he has recently been started on H2 courtney and referred to gastrointestinal as an outpatient. PROBLEM LIST: 1. 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 No radiographic e/o MTB and AFB smear neg x 3 2. Atypical chest pain and shortness of breath, CT-A neg for PE 3. Epigastric discomfort. 4. GERD or gastritis. TREATMENT PLAN: 1. CT CAP reviewed, no e/o TB 2. F/U MTB PCR, smear negativ x 3 3. Per ID can be off respiratory isolation - AWAITING PUBLIC HEALTH DEPARTMENT CLEARANCE 4. Consideration for treatment of LTBI, ID discussing with patient 5. Supportive care. 6. As needed antitussive therapy. 7. Continue PPI. 8. Should have an outpatient GI eval 9. DVT prophylaxis, SCDs. Subjective Allergies: Coded Allergies: No Known Allergies (Unverified , 09/25/17) Subjective Smear neg x 3, awaiting clearance from department of health AFVSS, stable on RA No cough, no congestion, no SOB, no CP, no abd pain Objective Last 24 Hour Vital Signs Date Time Temp Pulse Resp B/P (MAP) Pulse Ox O2 Delivery O2 Flow Rate FiO2 09/28/17 09:00 97.3 76 20 125/56 97 97.3 09/28/17 00:35 97.7 60 20 126/68 96 Room Air 97.7 09/27/17 19:13 97.5 65 20 117/74 98 Room Air 97.5 Intake and Output 09/27/17 09/28/17 19:00 07:00 Intake Total 960 ml 400 ml Balance 960 ml 400 ml Intake Oral 960 ml 400 ml # Voids 2 General Appearance: WD/WN, no acute distress HEENT: normocephalic, atraumatic, anicteric, mucous membranes moist Respiratory/Chest: chest wall non-tender, lungs clear, normal breath sounds, no respiratory distress, no accessory muscle use Cardiovascular: normal peripheral pulses, normal rate, regular rhythm Abdomen: normal bowel sounds, soft, non tender, no organomegaly, non distended , no mass Extremities: no cyanosis, no clubbing, no edema Microbiology Date/Time Source Procedure Growth Status 09/27/17 15:00 Sputum AFB Specimen Processing Tissue - Final Resulted 09/27/17 15:00 Sputum Acid Fast Bacilli Smear - Final Resulted 09/27/17 15:00 Sputum Acid Fast Bacilli Culture Pending Resulted 09/26/17 09:55 Sputum AFB Specimen Processing Tissue - Final Resulted 09/26/17 09:55 Sputum Acid Fast Bacilli Smear - Final Resulted 09/26/17 09:55 Sputum Acid Fast Bacilli Culture Pending Resulted Laboratory Tests 09/28/17 06:20: White Blood Count 7.3, Red Blood Count 5.41, Hemoglobin 17.0, Hematocrit 49.5, Mean Corpuscular Volume 92, Mean Corpuscular Hemoglobin 31.4H, Mean Corpuscular Hemoglobin Concent 34.3, Red Cell Distribution Width 10.5L, Platelet Count 183, Mean Platelet Volume 8.8, Neutrophils (%) (Auto) 56.0, Lymphocytes (%) (Auto) 31.7, Monocytes (%) (Auto) 9.5, Eosinophils (%) (Auto) 2.0, Basophils (%) (Auto ) 0.9, Sodium Level 137, Potassium Level 4.3, Chloride Level 103, Carbon Dioxide Level 29, Anion Gap 6, Blood Urea Nitrogen 15, Creatinine 0.9, Estimat Glomerular Filtration Rate > 60, Glucose Level 102, Calcium Level 9.1, Total Bilirubin 0.6, Aspartate Amino Transf (AST/SGOT) 16, Alanine Aminotransferase ( ALT/SGPT) 24, Alkaline Phosphatase 112, Total Protein 7.6, Albumin 4.0, Globulin 3.6, Albumin/Globulin Ratio 1.1 Current Medications Medications (Trade) Dose Ordered Sig/Warren Route PRN Reason Start Time Stop Time Status Last Admin Dose Admin Acetaminophen (Tylenol) 500 mg Q4H PRN ORAL Mild Pain/Temp > 100.5 09/25/17 17:30 10/25/17 17:29 Guaifenesin (Robitussin) 100 mg Q4H PRN ORAL For Cough 09/25/17 18:45 10/25/17 18:44 Pantoprazole (Protonix) 40 mg DAILY ORAL 09/26/17 09:00 10/26/17 08:59 09/28/17 10:02 Anjel Coronel MD Sep 28, 2017 16:10
--- NOTE | 2017-09-29 11:34 | Discharge Summary ---
Discharge Summary Discharge Summary _ DATE OF ADMISSION: [] 09/25/2017 DATE OF DISCHARGE: 09/28/2017 REASON FOR ADMISSION: 27 years old male without significant past medical history, originally from [facility], who recently established care at [facility]. Patient had been having cough for the past couple weeks with left-sided vague chest discomfort. Patient had positive QuantiFERON Gold test , and was advised to come to emergency department for further evaluation. Patient also had chest x-ray which showed left base atelectasis. Otherwise stable. Patient was afebrile. He denied fever,chills, night sweats, headache , dizziness ,nausea and vomiting. Patient did report some abdominal discomfort and dyspepsia, for which he recently started on Zantac and was referred for GI evaluation. Upon arrival to emergency department, patient was afebrile, pulse oximetry was stable on room air. Laboratory workup was unremarkable. CXR revealed no acute cardiopulmonary pathology. Patient was admitted to medical surgical floor for airborne isolation with diagnosis of positive QuantiFERON Gold test for evaluation and further management. CONSULTANTS: pulmonary Dr. Coronel ID specialist Dr. Montez [facility] COURSE: Patient admitted to airborne isolation room. Pulmonology and ID consults were requested. AFB smear 3 were negative. Likely latent tuberculosis per ID and pulmonology specialists. Mycobacterium tuberculosis by PCR still pending. Supplemental oxygen provided as needed to keep pulse oximetry above 92%. Pulmonary toilet provided as needed. Antitussive provided as needed. Supportive care provided. CTA of the chest revealed no evidence of PE or other acute thoracic vascular pathology. CT of the abdomen and pelvis revealed no acute intra-abdominal pathology. Stool for occult blood was negative. Patient started on PPI. DVT prophylaxis provided with SCD. Infectious disease specialism spoke with Department of Public Health , and patient was cleared for discharge. Infectious disease specialist extensively discussed with the patient about INH prophylaxis or waiting for symptoms to develop and treat [id number]. Patient verbalized understanding. Patient was stable for discharge. FINAL DIAGNOSES: Positive QuantiFERON GOLD test Likely latent tuberculosis Atypical chest pain and shortness of breath, resolved Possible GERD Possible gastritis DISCHARGE INSTRUCTIONS: Patient was discharged home. Follow up with [facility].. Discussed options prophylactic treatment with INH or wait and if symptoms develop ,then treat. Patient was advised to follow-up with outpatient GI. I have been assigned to dictate discharge summary for this account. I was not involved in the patient's management. Niki Delgado NP Sep 29, 2017 11:34
== END 2017-09-28 19:20 | disposition home or self-care (01) | DRG 144 ==
LOC: EMR 13:29 → 4W 14:22 → EDBEDREQ 14:30
DX: R76.11 Nonspecific reaction to tuberculin skin test without active tuberculosis (principal); K29.70 Gastritis, unspecified, without bleeding; R06.02 Shortness of breath; R07.89 Other chest pain
CPT/HCPCS: 36415; 71045; 71275; 74177; 80053; 82270; 82550; 82553; 85025; 87116; 87556; 93005; 94640; 99285